=== PATIENT | male | born 1990 | race Caucasian/White ===

== ENCOUNTER 2018-12-26 20:40 | Emergency (ER) | payer SELFPAY ==
--- NOTE | 2018-12-26 20:49 | ED Physician Documentation ---
Fall - HISTORIAN Historian: patient - HPI Stated Complaint: fall Chief Complaint: Fall Additional Information: Patient presents to ED after falling just prior to arrival. Patient states he just fell forward, striking his lip on the ground. He has a 1 cm laceration to the interior portion of his left lower lip. He is not current on tetanus vaccine. Onset: just prior to arrival Where: work Context: tripped r: mild Associated Symptoms:: no loss of consciousness Location of Pain/Injury: face (lower lip) Injury to Right Extremity: none Injury to Left Extremity: none - ROS CONST: no problems NEURO: denies: dizziness MS/SKIN/LYMPH: denies: weakness EYES/ENT: none CVS/RESP: none GI/: denies: nausea - PAST HX Past History: none Allergies/Adverse Reactions: Allergies Allergy/AdvReac Type Severity Reaction Status Date / Time No Known Allergies Allergy Verified 12/26/18 20:53 Home Medications: Ambulatory Orders Medication Instructions Recorded Penicillin V Potassium [Pen V K] 500 mg PO QID #40 tablet 06/02/15 traMADol HCL [Ultram] 50 mg PO Q6H PRN #20 tablet 06/02/15 - SOCIAL HX Smoking History: cigarettes, greater than 1 pack/day Alcohol Use: none Drug Use: none - FAMILY HX Family History: none - VITAL SIGNS Vital Signs: Vital Signs Temp Pulse Resp BP Pulse Ox 160/96 06/02/15 13:31 - REVIEWED ASSESSMENTS Nursing Assessment Reviewed: Yes Vitals Reviewed: Yes Fall Physical Exam - Physical Exam General Appearance: no acute distress, alert Head: non-tender, no swelling, no obvious injury Neck: non-tender, painless ROM Eye: ANGI, EOMI ENT: no dental injury Resp/CVS: chest non-tender, breath sounds nml, no resp. distress Abdomen: soft Neuro: oriented x3, motor nml, mood/affect nml Back: normal inspection, no vertebral tenderness Extremities: atraumatic, pelvis stable Joint: joints nml, nml ROM, Nml gait/weight bearing - Gerardo Coma Score Eyes Open: Spontaneous Speech: Oriented Motor: Obeys Commands Discharge Clincal Impression: Laceration of mouth, internal Qualifiers: Encounter type: initial encounter Qualified Code(s): S01.512A - Laceration without foreign body of oral cavity, initial encounter Referrals: Primary Doctor,No [Primary Care Provider] - 2 Days Additional Instructions: 1. Ibuprofen 600mg every 6 hours and/or Tylenol 650mg every 4 hours as needed for pain. These may be taken together for better pain control 2. Salt water mouth rinses every 4 hours. Especially after eating. 3. Follow up with PCP within 1 week 4. Return to ER for new or worsening symptoms Condition: Stable Disposition: 01 HOME, SELF-CARE Decision to Admit: NO Date of Decison to Admit: 12/26/18 Decision Time: 20:59
[2018-12-26 20:57] VITALS: BP 153/96
[2018-12-26] MEDS: DIPH,PERTUSS(ACELL),TET VAC/PF 0.5 ML DISP.SYRIN IM ONE (20:59)
== END 2018-12-26 21:03 | disposition home or self-care (01) ==
LOC: ED 20:40
DX: S01.512A Laceration without foreign body of oral cavity, initial encounter (principal); W01.198A Fall on same level from slipping, tripping and stumbling with subsequent striking against other object, initial encounter; Y99.0 Civilian activity done for income or pay
CPT/HCPCS: 90471; 90715; 99282; 99284